=== PATIENT | female | born 1950 | race Caucasian/White ===

== ENCOUNTER 2017-08-21 20:53 | Emergency (ER) | payer OTHER ==
[~2017-08-21] VITALS: Ht 167.6 cm; Wt 82.7 kg
[2017-08-21 20:58] VITALS: Ht 167.6 cm; Wt 82.7 kg
[2017-08-21 21:27] LABS: BASOPHILS % 0.3 % (0.0-2.0); EOSINOPHILS # 0.1 10^3/ul (0.0-0.5); EOSINOPHILS % 0.7 % (0.0-7.0); HEMATOCRIT 35.8 % (37.0-47.0); HEMOGLOBIN 11.7 g/dl (12.0-16.0); LYMPHOCYTES % 28.5 % (15.0-51.0); MEAN CORPUSCULAR HEMOGLOBIN 30.1 pg (29.0-33.0); MEAN CORPUSCULAR HGB CONC 32.7 g/dl (32.0-37.0); MEAN PLATELET VOLUME 10.3 fl (7.4-10.4); MONOCYTE # 0.7 10^3/ul (0.3-0.9); MONOCYTES % 6.2 % (0.0-11.0); NEUTROPHIL # 6.6 10^3/ul (1.6-7.5); PLATELET COUNT 198 10^3/UL (140-415); RED BLOOD COUNT 3.89 10^6/ul (4.20-5.40); RED CELL DISTRIBUTION WIDTH 14.3 % (11.5-14.5); WHITE BLOOD COUNT 10.5 10^3/ul (4.8-10.8)
--- NOTE | 2017-08-21 21:44 | RADRPT ---
PROCEDURE: CT Brain without contrast. CLINICAL INDICATION: Pain, headache TECHNIQUE: Routine CT scan of the brain was performed on a high resolution multi detector scanner without intravenous contrast. One or more of the following dose reduction techniques were used: Auto mated exposure control; Adjustment of the mA and/or kV according to patient size; Use of iterative r econstruction technique. CTDI = 43 mGy. DLP = 866 mGy-cm. COMPARISON: No prior relevant examinations are available for comparison. FINDINGS: Hemorrhage: No evidence of intracranial hemorrhage. Acute ischemic changes: No evidence of acute ischemic changes. Mass effect: None. Parenchymal volume: Within normal limits for age. Ventricular system: Concordant with parenchymal volume. Chronic changes: Parenchymal attenuation is within normal limits. Atherosclerotic calcifications of the cavernous portions of both internal carotid arteries are present. Extracranial soft tissues: Right parietal scalp laceration. Calvarium: No fractures. Paranasal sinuses: Visualized paranasal sinuses are clear. Mastoid air cells: Visualized mastoid air cells are clear. IMPRESSION: No acute intracranial abnormalities. Normal appearance of the brain parenchyma. Right parietal scalp laceration. No fractures. RPTAT: AADD .Osman Bowman MD, Date Time Electronically viewed and signed by .Osamn Bowman MD, MD on 08/21/2017 21:44 .B/
[2017-08-21 21:51] LABS: ALBUMIN 3.8 g/dl (3.3-4.9); ALBUMIN/GLOBULIN RATIO 1.15; BILIRUBIN,INDIRECT 0.1 mg/dl (0-1.1); BILIRUBIN,TOTAL 0.1 mg/dl (0.2-1.3); CALCIUM 9.2 mg/dl (8.4-10.2); CREATININE 1.11 mg/dl (0.44-1.00); POTASSIUM 3.8 mmol/L (3.5-5.1); TOTAL PROTEIN 7.1 g/dl (6.1-8.1)
--- NOTE | 2017-08-21 21:55 | RADRPT ---
PROCEDURE: XR Left Tibia and Fibula. CLINICAL INDICATION: Trauma. Pain. TECHNIQUE: Three views of the left tibia and fibula are available for review. COMPARISON: None available FINDINGS: There is a minimally displaced fracture of the proximal diaphysis of the fibula seen on the lateral view. No other fractures identified. There are tricompartment degenerative changes of the knee. No r adiopaque foreign body is identified. Bone mineralization is within normal limits. Vascular calcif ications are present. The soft tissues are otherwise unremarkable. IMPRESSION: 1. Minimally displaced fracture the proximal diaphysis of the fibula. 2. Degenerative changes of the knee. 3. Vascular calcifications. RPTAT: HMVK .Jerson Owen MD, Date Time Electronically viewed and signed by .Jerson Owen MD, on 08/21/2017 21:55 .K/
[2017-08-21] MEDS ORDERED: ATOR20TA38 PO (22:02)
[2017-08-21] MEDS ORDERED: DONE10TA7 PO (22:02)
[2017-08-21] MEDS ORDERED: SERT50TA6 PO (22:03)
[2017-08-21] MEDS ORDERED: LISI10TA2 PO (22:03)
[2017-08-21] MEDS ORDERED: METF500T4 PO (22:07)
[2017-08-21] MEDS ORDERED: INSU100V3 IJ (22:09)
[2017-08-21] MEDS ORDERED: LORAZEPAM 2 MG INJ IV ONE (22:30)
--- NOTE | 2017-08-21 22:50 | ERD ---
ER Documentation Chief Complaint Date/Time DATE: 08/21/17 TIME: 22:33 Chief Complaint BIBA RA90 fall r/t syncope and hypoglycemia BS 20 at home,c/o L leg pain HPI This is a 67-year-old female with a history of hypertension and diabetes who is on insulin who presents to the emergency room after a ground-level fall. This patient states she is walking on the steps and slipped and fell backwards and hit her head. She denies any loss of consciousness. She denies being on any blood thinners. The patient visited she noticed some blood in her EMS was called. When EMS arrived he stated this patient had a low blood sugar of 20. The patient was given D10 and was transferred to the ER for further evaluation. ROS All systems reviewed and are negative except as per history of present illness. Medications Home Meds Reported Medications Insulin Regular, Human (Humulin R) 100 Unit/1 Ml Vial, 0 IJ SLIDING SCALES, VIAL 08/21/17 Metformin Hcl* (Metformin Hcl*) 500 Mg Tablet, 500 MG PO WITH BREAKFAST DINNE, # 60 TAB 08/21/17 Sertraline Hcl* (Sertraline Hcl*) 50 Mg Tablet, 50 MG PO DAILY, #30 TAB 08/21/17 Lisinopril* (Lisinopril*) 10 Mg Tablet, 10 MG PO DAILY, #30 TAB 08/21/17 Atorvastatin Calcium* (Atorvastatin Calcium*) 20 Mg Tablet, 20 MG PO QHS, #30 TAB 08/21/17 Donepezil* (Donepezil*) 10 Mg Tablet, 10 MG PO DAILY, #30 TAB 08/21/17 Allergies Allergies: Coded Allergies: latex (Verified Allergy, Unknown, 08/21/17) Physical Exam Vitals Vital Signs Date Time Temp Pulse Resp B/P Pulse Ox O2 Delivery O2 Flow Rate FiO2 08/21/17 20:58 97.8 65 18 129/66 100 Physical Exam INITIAL VITAL SIGNS: Reviewed by me GENERAL: The patient is well developed and appropriate for usual state of health in no apparent distress HEENT: 3 cm laceration noted at the occipital portion of the scalp, pupils equal , round, and reactive to light. EOMI. There is no scleral icterus. NECK: C-spine is soft and supple, there is no meningismus. There is no cervical lymphadenopathy. LUNGS: Clear to auscultation bilaterally. There are no rales, wheezes or rhonchi. HEART: Regular rate and rhythm, no murmurs, clicks, rubs or gallops. ABDOMEN: Soft, non-tender, non-distended. There are bowel sounds in all four quadrants. No rebound or guarding. EXTREMITIES: There is no peripheral cyanosis or edema. No focal swelling or erythema. NEUROLOGICAL: The patient moves all four extremities with 5/5 strength. Cranial nerves II - XII are intact. Normal gait. Alert and oriented SKIN: 3 cm x 2 cm area of ecchymosis noted on the left anterior pena, there is no apparent rash or petechiae. HEME/LYMPHATIC: There is no evidence of excessive bruising or lymphedema. PSYCHIATRIC: The patient does not appear anxious or depressed. Result Diagram: 08/21/17210908/21/172109 Results 24 hrs Laboratory Tests Test 08/21/17 21:10 White Blood Count 10.510^3/ul Red Blood Count 3.8910^6/ul Hemoglobin 11.7g/dl Hematocrit 35.8% Mean Corpuscular Volume 92.0fl Mean Corpuscular Hemoglobin 30.1pg Mean Corpuscular Hemoglobin Concent 32.7g/dl Red Cell Distribution Width 14.3% Platelet Count 21215^3/UL Mean Platelet Volume 10.3fl Neutrophils % 63.0% Lymphocytes % 28.5% Monocytes % 6.2% Eosinophils % 0.7% Basophils % 0.3% Nucleated Red Blood Cells % 0.0/100WBC Neutrophils # 6.610^3/ul Lymphocytes # 3.010^3/ul Monocytes # 0.710^3/ul Eosinophils # 0.110^3/ul Basophils # 0.010^3/ul Nucleated Red Blood Cells # 0.010^3/ul Sodium Level 140mmol/L Potassium Level 3.8mmol/L Chloride Level 104mmol/L Carbon Dioxide Level 29mmol/L Anion Gap 11 Blood Urea Nitrogen 19mg/dl Creatinine 1.11mg/dl Glucose Level 72mg/dl Bedside Glucose 72mg/dL Calcium Level 9.2mg/dl Total Bilirubin 0.1mg/dl Direct Bilirubin 0.00mg/dl Indirect Bilirubin 0.1mg/dl Aspartate Amino Transf (AST/SGOT) 34IU/L Alanine Aminotransferase (ALT/SGPT) 35IU/L Alkaline Phosphatase 57IU/L Total Protein 7.1g/dl Albumin 3.8g/dl Globulin 3.30g/dl Albumin/Globulin Ratio 1.15 Lipase 95U/L Current Medications Medications (Trade) Dose Ordered Sig/Kuldip Route PRN Reason Start Time Stop Time Status Last Admin Dose Admin Lorazepam (Ativan) 1 mg ONCE ONCE IV 08/21/17 22:30 08/21/17 22:31 DC 08/21/17 22:31 Procedures/MDM CT head without: No acute intracranial abnormalities. Normal appearance of the brain parenchyma. Right parietal scalp laceration. No fractures. X-ray left tib-fib 2V Interpreted by me: Bones: No fracture Joints: No dislocation Foreign body: None Laceration Repair by me: Anesthesia: 1% lidocaine locally Location: Scalp Tendon/Joint/Nerves: No injury Foreign body: None detected after copious irrigation and exploration Technique: [place] Complexity: No subcutaneous sutures/mucosal repair/ edge excision Post Closure Length: 3 cm Patient's bleeding was easily controlled in the department and there is no indication of anemia. No evidence of compartment syndrome, neurologic injury, vascular injury, open joint, tendon laceration, or foreign body. Patient is appropriate for outpatient follow up. 48 hour wound check. Scar minimization instructions given. This 67-year-old female presents to the emergency room after ground-level fall at home where she fell on stairs approximately 2 steps while walking and steps. The patient was found to be hypoglycemic by EMS and their arrival. The patient did get a infusion of D10. She does state that she is a diabetic and is taking insulin. She denies any oral hypoglycemic agents. The patient underwent lab work in the emergency room including a CT of the brain which is within normal limits and shows no sign of intracranial pathology or fracture. She did have her scalp repaired. Please see laceration repair note. The patient was extremely anxious and was given 1 mg of Ativan. She will be discharged home at this time with instructions to return to the ER in 7 days for removal of froilan. Departure Diagnosis: Primary Impression: Scalp laceration Additional Impressions: Fall with no significant injury Hypoglycemia Hypoglycemia associated with diabetes Condition: Stable MARYLOU LUGO DO Aug 21, 2017 22:50
[2017-08-22 01:53] VITALS: BP 91/55; PULSE 87; RESP 16; TEMP 98.6
== END 2017-08-22 02:08 | disposition home or self-care (01) ==
LOC: E/R 20:53
DX: S01.01XA Laceration without foreign body of scalp, initial encounter (principal); E11.649 Type 2 diabetes mellitus with hypoglycemia without coma; W10.8XXA Fall (on) (from) other stairs and steps, initial encounter; Y92.9 Unspecified place or not applicable; Z79.4 Long term (current) use of insulin; Z79.84 Long term (current) use of oral hypoglycemic drugs
CPT/HCPCS: 12002; 36415; 70450; 73590; 80053; 82962; 83690; 85025; 96374; 99285; J2060

== ENCOUNTER 2017-08-29 11:18 | Emergency (ER) | payer OTHER ==
[~2017-08-29] VITALS: Ht 157.5 cm; Wt 80.0 kg
[~2017-08-29 11:18] MED LIST: ATOR20TA38 PO; DONE10TA7 PO; INSU100V3 IJ; LISI10TA2 PO; METF500T4 PO; SERT50TA6 PO
[2017-08-29 11:24] VITALS: Ht 157.5 cm; Wt 80.0 kg
--- NOTE | 2017-08-29 14:44 | ERD ---
ER Documentation Chief Complaint Date/Time DATE: 08/29/17 TIME: 14:40 Chief Complaint scalp luis removal HPI This is a 67-year-old female presenting to the emergency department for removal of luis to her right scalp. Patient had an injury about 8 days ago and required 3 luis. Patient denies any drainage. No bleeding. Denies pain. No headache. No change in mood or behavior. No loss of consciousness. No nausea or vomiting. ROS All systems reviewed and are negative except as per history of present illness. Medications Home Meds Reported Medications Insulin Regular, Human (Humulin R) 100 Unit/1 Ml Vial, 0 IJ SLIDING SCALES, VIAL 08/21/17 Metformin Hcl* (Metformin Hcl*) 500 Mg Tablet, 500 MG PO WITH BREAKFAST DINNE, # 60 TAB 08/21/17 Sertraline Hcl* (Sertraline Hcl*) 50 Mg Tablet, 50 MG PO DAILY, #30 TAB 08/21/17 Lisinopril* (Lisinopril*) 10 Mg Tablet, 10 MG PO DAILY, #30 TAB 08/21/17 Atorvastatin Calcium* (Atorvastatin Calcium*) 20 Mg Tablet, 20 MG PO QHS, #30 TAB 08/21/17 Donepezil* (Donepezil*) 10 Mg Tablet, 10 MG PO DAILY, #30 TAB 08/21/17 Allergies Allergies: Coded Allergies: latex (Verified Allergy, Unknown, 08/21/17) PMhx/Soc Hx Alcohol Use: No Hx Substance Use: No Hx Tobacco Use: Yes Smoking Status: Current every day smoker Physical Exam Vitals Vital Signs Date Time Temp Pulse Resp B/P Pulse Ox O2 Delivery O2 Flow Rate FiO2 08/29/17 11:24 98.1 68 18 144/67 99 Physical Exam Const: no acute distress, alert Head: Atraumatic Eyes: Normal Conjunctiva Skin: 3 luis to right occipital portion of the scalp. no surrounding erythema, warmth or drainage. Ext: No cyanosis, or edema Neur: Awake and alert Psych: Normal Mood and Affect Procedures/MDM MDM: This is a 67-year-old female presenting to emerge department for staple removal. Patient has 3 luis to occipital area of the right side of her head. Staple Removal by me: Verbal consent obtained by me 3 Luis removed with staple remover without incident. Wound shows no evidence of infection, foreign body, neurologic injury, vascular injury, open joint or tendon laceration. Patient to follow up PRN. Return to ED for any high fever, chest pain, difficulty breathing, shortness breath, wheezing, vomiting, diarrhea, abdominal pain or any new or worsening symptoms. Patient verbalizes understanding. All questions answered at discharge. Patient discharged in compliance with the [facility] treat and release policy. Disclaimer: Inadvertent spelling and grammatical errors are likely due to EHR/ dictation software use and do not reflect on the overall quality of patient care. Also, please note that the electronic time recorded on this note does not necessarily reflect the actual time of the patient encounter. Departure Diagnosis: Primary Impression: Encounter for removal of luis Condition: Stable Patient Instructions: Staple Removal, No Complication Referrals: [facility] YOU HAVE RECEIVED A MEDICAL SCREENING EXAM AND THE RESULTS INDICATE THAT YOU DO NOT HAVE A CONDITION THAT REQUIRES URGENT TREATMENT IN THE EMERGENCY DEPARTMENT. FURTHER EVALUATION AND TREATMENT OF YOUR CONDITION CAN WAIT UNTIL YOU ARE SEEN IN YOUR DOCTORS OFFICE WITHIN THE NEXT 1-2 DAYS. IT IS YOUR RESPONSIBILITY TO MAKE AN APPOINTMENT FOR FOLOW-UP CARE. IF YOU HAVE A PRIMARY DOCTOR --you should call your primary doctor and schedule an appointment IF YOU DO NOT HAVE A PRIMARY DOCTOR YOU CAN CALL OUR PHYSICIAN REFERRAL HOTLINE AT IF YOU CAN NOT AFFORD TO SEE A PHYSICIAN YOU CAN CHOSE FROM THE FOLLOWING [facility] [address] [facility]. [facility] [address] [facility]. [facility] [address] [facility]. [facility] [address] [facility]. [facility] [address] [facility]. [facility]. [address] [facility] YOU HAVE RECEIVED A MEDICAL SCREENING EXAM AND THE RESULTS INDICATE THAT YOU DO NOT HAVE A CONDITION THAT REQUIRES URGENT TREATMENT IN THE EMERGENCY DEPARTMENT. FURTHER EVALUATION AND TREATMENT OF YOUR CONDITION CAN WAIT UNTIL YOU ARE SEEN IN YOUR DOCTORS OFFICE WITHIN THE NEXT 1-2 DAYS. IT IS YOUR RESPONSIBILITY TO MAKE AN APPOINTMENT FOR FOLOW-UP CARE. IF YOU HAVE A PRIMARY DOCTOR --you should call your primary doctor and schedule and appointment IF YOU DO NOT HAVE A PRIMARY DOCTOR YOU CAN CALL OUR PHYSICIAN REFERRAL HOTLINE AT . IF YOU CAN NOT AFFORD TO SEE A PHYSICIAN YOU CAN CHOSE FROM THE FOLLOWING [facility] INSTITUTIONS: [facility] [address] [place] [address] [facility] [address] [place] [address] [facility] [address] [place] [address] Additional Instructions: Call your primary care doctor TOMORROW for an appointment during the next 2-3 days.See the doctor sooner or return here if your condition worsens before your appointment time. Return to ED for any high fever, chest pain, difficulty breathing, shortness breath, wheezing, vomiting, diarrhea, abdominal pain or any new or worsening symptoms. DELICIA OGLESBY NP Aug 29, 2017 14:44
== END 2017-08-29 12:24 | disposition home or self-care (01) ==
LOC: FTE 11:18
DX: Z48.02 Encounter for removal of sutures (principal); F17.210 Nicotine dependence, cigarettes, uncomplicated; Z79.4 Long term (current) use of insulin; Z79.84 Long term (current) use of oral hypoglycemic drugs
CPT/HCPCS: 99281